=== PATIENT | male | born 1995 | race Two or more races ===

== ENCOUNTER 2020-04-18 00:02 | Emergency (ER) | payer OTHER, SELFPAY | END 2020-04-18 02:38 | disposition left against medical advice (07) | DX: R05 Cough (principal); R06.02 Shortness of breath ==

== ENCOUNTER 2020-10-05 14:14 | Emergency (ER) | payer OTHER, SELFPAY ==
--- NOTE | ~2020-10-05 | CT_ITS ---
EXAMINATION: CT HEAD WITHOUT CONTRAST CLINICAL INFORMATION: pt s/p hit with ceiling fan c pain to r scalp/dizziness COMPARISON: None TECHNIQUE: Contiguous axial imaging was performed from the skull base to vertex without intravenous administration of contrast. This CT examination was performed using dose optimization techniques as appropriate, variously including the following: *Automated exposure control *Adjustment of mA and/or kV according to patient size (this includes techniques or standardized protocols for targeted exams where dose is matched to indication/reason for exam; i.e. extremities or head) *Use of iterative reconstruction technique DLP: 851 mGy-cm FINDINGS: There is no evidence of acute intracranial hemorrhage or territorial infarction. No abnormal mass effect or midline shift is seen. Swanson to white matter differentiation is well preserved. No extra-axial fluid collections are identified. The ventricles are normal in size. There is no abnormal attenuation within the brain parenchyma. The osseous structures and soft tissues are normal. No acute scalp injuries are identified. No appreciable subgaleal hematoma. No underlying calvarial fractures. The mastoid air cells and visualized portions of the paranasal sinuses are well aerated. CT/CT head/brain wo con IMPRESSION: No acute intracranial pathology.
[2020-10-05 15:37] VITALS: BP 145/74; PULSE 71; RESP 18; TEMP 37; O2SAT 98; BMI 24.4
--- NOTE | 2020-10-05 16:00 | ED.HEATRA ---
HPI - Head Injury General Chief complaint: Head Injury Stated complaint: Ceiling fan hit his head Time Seen by Provider: 10/05/20 15:48 Source: patient Mode of arrival: ambulatory Limitations: no limitations History of Present Illness HPI Narrative: 25-year-old male with a past medical history of ADHD, insomnia, depression, migraine headaches and hypertension presenting to the ED with complaints of intermittent headaches and dizziness /lightheadedness with motion since he hit his head yesterday on the ceiling fan in his bedroom. He reports that he also had a laceration which she covered with gauze and it has since resolved from bleeding. He reports he went to [facility] although the wait time was too long therefore he came here for further evaluation and treatment today. He denies being up-to-date on tetanus. He denies any other injuries complaints or concerns at this time. Complaint: head injury Onset (ago): day(s) ( Yesterday) Mechanism of Injury: other ( ceiling fan) Place: home Loss of Consciousness: no Location of injury: temporal Severity: moderate Quality: aching and throbbing Radiation: none Other Injuries: none Associated symptoms: other ( intermittent headaches and dizziness / lightheadedness with motion) Related Data Allergies Allergy/AdvReac Type Severity Reaction Status Date / Time No Known Allergies Allergy Verified 10/05/20 15:36 Review of Systems Review of Systems: Constitutional : No Fever, No Chills, No Night Sweats, No Fatigue, No Malaise ENT/Mouth : No Ear Pain, No Nasal Congestion, No Sinus Pain, No sore throat, No Rhinorrhea Eyes: No Eye Pain, No Swelling, No Redness, No Foreign Body, No Discharge, No Vision Changes Cardiovascular : No Chest Pain, No SOB, No Dyspnea on Exertion, No Orthopnea, No Palpitations Respiratory : No Cough, No Sputum, No Wheezing, No Dyspnea Gastrointestinal : No Nausea, No Vomiting, No Diarrhea, No Constipation, No abdominal Pain, No Hematochezia, No Melena Genitourinary : No Dysuria, No Urinary Frequency, No Urinary Incontinence, No Urgency, No Flank Pain Musculoskeletal : No joint pain, No Myalgias Skin : No lacerations Neuro : Positive head injury, positive intermittent dizziness, positive intermittent headaches, No Focal weakness, no general weakness, No Numbness, No Paresthesias, No Loss of Consciousness Yes all other systems are reviewed and are negative PMFSH Past Medical History Attestation statement: The following information was validated with the patient. Medical History HTN (hypertension) Migraines Social History Social History Advance Directives: No Advance Directives Information Provided: No Physical Exam Vital Signs: Vital Signs: Last Vital Signs Temp 98.6 F 10/05/20 15:37 Pulse 71 10/05/20 15:37 Resp 18 10/05/20 15:37 BP 145/74 H 10/05/20 15:37 Pulse Ox 98 10/05/20 15:37 Body Mass Index 24.4 Vital signs have been reviewed as normal and appeared to be correct. Blood pressure 145/74. Heart rate normal. Respiration rate normal. Temperature normal. Oxygen saturation normal. Appearance: Alert. Oriented X3. No acute distress. Head: Patient with scab noted to right temporal aspect no active bleeding or foreign bodies noted. Patient mild tenderness to palpation to right temporal aspect. No obvious deformities are noted. The rest of the external exam is within normal limits. Able to rotate head bilaterally. Eyes: PERRLA. EOMI. No nystagmus noted. Conjunctiva and sclera normal. Eyelids normal. Corneal reflex normal. ENT: EAC normal. TM's Normal. no septal hematoma noted. No hemotympanum noted. Hearing normal. Pharynx normal. Uvula midline. tongue midline. Moist mucous membranes. No trismus noted. No drooling noted. No muffled voice noted. No nystagmus noted. Neck: Normal inspection. Neck supple. FROM. No adenopathy. Trachea midline. Thyroid Normal. No meningeal signs. No neck mass noted. CVS: Normal heart rate and rhythm. Heart sound normal. No murmurs noted. Pulses normal throughout. Respiratory: No respiratory distress. Painless inspiration. Breath sounds normal. No wheezes/rales/rhonchi noted. Chest nontender. No accessory muscle usage noted or decreased air movement noted. Abdomen: Soft and nontender. Bowel sounds normal in all 4 quadrants. No distention noted. No organomegaly noted. No visible injury noted. Back: Full range of motion noted. Skin: Skin warm and dry. Normal skin color. Normal skin turgor. No rashes/lesions/lacerations noted. Extremities: No lower extremity edema. Extremities exhibit normal range of motion. Extremities nontender. Able to shrug shoulders bilaterally and keep up against resistance. Neuro: Oriented X 3. No motor deficit. No sensory deficit. Reflexes normal. Moving all extremities. No focal motor deficits. Cranial nerves II-XI intact bilaterally. Facial strength normal. Normal cognition. Speech normal. Gait normal. Strength 5/5 throughout. Course Course Course Narrative: 16pm - 25-year-old male with a past medical history of ADHD, insomnia, depression, migraine headaches and hypertension presenting to the ED with complaints of intermittent headaches and dizziness /lightheadedness with motion since he hit his head yesterday on the ceiling fan in his bedroom. He reports that he also had a laceration which she covered with gauze and it has since resolved from bleeding. Plan: CT scan of brain, update the patient's tetanus, provide tylenol c codeine then re-evaluate. Reevaluation(s) Reevaluation #1: - patient's girlfriend came into the emergency department and told him that he she tested positive for gonorrhea therefore he is requesting to be tested and treated for gonorrhea. We will test for gonorrhea chlamydia and treat for both gonorrhea chlamydia. Patient is still awaiting CT scan of brain. Time: 16:58 [facility] - Head Injury Medical Records Attestation: I reviewed the patient's medical records. Imaging Data CT scan of brain: Attestation: I personally reviewed and interpreted this imaging study as follows: Discharge Plan Discharge Clinical Impression: Exposure to sexually transmitted disease (STD), Head injury, Concussion
[2020-10-05] MEDS: Diphth,Pertus(ACell),Tet Adult 0.5 ML SYRINGE IM (16:37)
[2020-10-05] MEDS: cefTRIAXone sodium 500 MG, Lidocaine HCl 1 % MPF 1 ML IM (17:33)
[2020-10-05 18:00] VITALS: BP 138/89; PULSE 69; RESP 16; TEMP 35.9; O2SAT 99
--- NOTE | 2020-10-05 19:32 | PC.NURSE ---
PT NOT IN ROOM FOR D/C. ELOPED BEFORE REEVAL.
[2020-10-06 02:07] LABS: CT PCR NOT DETECTED (Not Detect.); NG PCR NOT DETECTED (Not Detect.)
== END 2020-10-05 19:34 | disposition home or self-care (01) ==
PROVIDERS: Physician Assistant Medical; Emergency Provider Emergency Medicine; PCP Physician Assistant
DX: S06.0X0A Concussion without loss of consciousness, initial encounter (principal); Z20.2 Contact with and (suspected) exposure to infections with a predominantly sexual mode of transmission; W20.8XXA Other cause of strike by thrown, projected or falling object, initial encounter; Y93.9 Activity, unspecified; Y92.003 Bedroom of unspecified non-institutional (private) residence as the place of occurrence of the external cause; Y99.9 Unspecified external cause status
CPT/HCPCS: 70450; 87491; 87591; 90471; 90715; 96372; 99284; J0696

== ENCOUNTER 2021-03-29 12:57 | Outpatient (REF) | payer OTHER, SELFPAY ==
[2021-03-30 07:53] LABS: HBS Num1 0.63 mIU/mL (0-7.99); HIV AB/AG Nonreactive (Nonreactive); HIV Num 1 0.11 S/CO (0.00-0.99); ~HepC Num1 0.17 S/CO (0.00-0.79); ~Hepatitis B Surface Antibody NONREACTIVE (Nonreactive); ~Hepatitis C Antibody Nonreactive (Nonreactive)
[2021-03-30 08:01] LABS: Syphilis Screen Nonreactive (Nonreactive)
[2021-03-30 08:30] LABS: HBc Num1 0.05 S/CO (0.00-0.79); HBsAGNum1 0.26 S/CO (0.00-0.99); Hepatitis B Core Antibody Nonreactive (Nonreactive); Hepatitis B Surface Antigen Negative (Negative)
[2021-04-03 16:01] LABS: Chlamydia Pneumoniae IgA <1:16 titer (<1:16); Chlamydia Pneumoniae IgG <1:64 titer (<1:64); Chlamydia Pneumoniae IgM <1:10 titer (<1:10); Chlamydia Psittaci IgA <1:16 titer (<1:16); Chlamydia Psittaci IgG <1:64 titer (<1:64); Chlamydia Psittaci IgM <1:10 titer (<1:10); Chlamydia Trachomatis IgA <1:16 titer (<1:16); Chlamydia Trachomatis IgG <1:64 titer (<1:64); Chlamydia Trachomatis IgM <1:10 titer (<1:10)
== END 2021-03-29 12:58 | disposition home or self-care (01) ==
LOC: HO.LAB 12:57
PROVIDERS: PCP Physician Assistant; Visit Provider Physician Assistant
DX: Z01.84 Encounter for antibody response examination (principal); Z11.4 Encounter for screening for human immunodeficiency virus [HIV]; Z11.3 Encounter for screening for infections with a predominantly sexual mode of transmission; Z20.2 Contact with and (suspected) exposure to infections with a predominantly sexual mode of transmission
CPT/HCPCS: 36415; 86631; 86632; 86704; 86706; 86780; 86803; 87340; 87389

== ENCOUNTER 2022-01-11 16:44 | Outpatient (REF) | payer OTHER, SELFPAY ==
[2022-01-11 18:39] LABS: CT PCR NOT DETECTED (Not Detect.); NG PCR NOT DETECTED (Not Detect.)
== END 2022-01-11 16:45 | disposition home or self-care (01) ==
LOC: HO.LNP 16:44
PROVIDERS: Visit Provider Internal Medicine
DX: Z11.3 Encounter for screening for infections with a predominantly sexual mode of transmission (principal)
CPT/HCPCS: 87491; 87591

== ENCOUNTER 2022-02-15 14:57 | Outpatient (REF) | payer OTHER, SELFPAY ==
[2022-02-18 00:36] LABS: TS Negative Control Passed; TS Panel A 0; TS Panel B 0; TS Positive Control Passed; TSpotTB Negative (Negative)
== END 2022-02-15 14:58 | disposition home or self-care (01) ==
LOC: HO.LAB 14:57
PROVIDERS: PCP Physician Assistant; Visit Provider Physician Assistant
DX: Z11.1 Encounter for screening for respiratory tuberculosis (principal)
CPT/HCPCS: 36415; 86481

== ENCOUNTER 2022-03-30 15:36 | Outpatient (REF) | payer OTHER, SELFPAY ==
[2022-03-31 02:32] LABS: CT PCR NOT DETECTED (Not Detect.); NG PCR NOT DETECTED (Not Detect.)
== END 2022-03-30 15:37 | disposition home or self-care (01) ==
LOC: HO.LAB 15:36
DX: Z11.3 Encounter for screening for infections with a predominantly sexual mode of transmission (principal)
CPT/HCPCS: 87491; 87591

== ENCOUNTER 2022-06-27 14:57 | Outpatient (REF) | payer OTHER, SELFPAY ==
[2022-06-28 04:12] LABS: Syphilis Screen Nonreactive (Nonreactive)
[2022-06-28 04:17] LABS: HIV AB/AG Nonreactive (Nonreactive); HIV Num 1 0.06 S/CO (0.00-0.99)
[2022-06-28 05:49] LABS: CT PCR NOT DETECTED (Not Detect.); NG PCR NOT DETECTED (Not Detect.)
== END 2022-06-27 14:58 | disposition home or self-care (01) ==
LOC: HO.LAB 14:57
PROVIDERS: PCP Physician Assistant; Visit Provider Physician Assistant
DX: Z11.4 Encounter for screening for human immunodeficiency virus [HIV] (principal); Z11.3 Encounter for screening for infections with a predominantly sexual mode of transmission; Z20.2 Contact with and (suspected) exposure to infections with a predominantly sexual mode of transmission
CPT/HCPCS: 0353U; 86780; 87389